=== PATIENT | male | born 1995 | race African-American/Black ===

== ENCOUNTER 2019-08-12 00:26 | Emergency (ER) | payer SELFPAY ==
[~2019-08-12] VITALS: Ht 180.3 cm; Wt 74.8 kg
[2019-08-12 00:35] VITALS: BP 131/65
--- NOTE | 2019-08-12 00:35 | NUR ---
24 YEAR OLD MALE COMPLAINS OF RIGHT HIP PAIN DUE TO CYST X 4 DAYS. PATIENT STATES IT STARTED DRAINING WITH YELLOW PUS AND BLOOD. PATIENT AOX4, LUNGS CTABL, BREATHING EVEN AND UNLABORED, SKIN WARM AND DRY. PT DENIES CHEST PAIN, N/V/D. BED IN LOWEST POSITION, LOCKED, BED RAIL UPX1. PMH - DENIES ALLERGIES - NKA
--- NOTE | 2019-08-12 00:35 | NUR ---
PT TAKEN TO BED 7
--- NOTE | 2019-08-12 01:24 | NUR ---
Dr. Zamarripa examining patient.
[2019-08-12] MEDS ORDERED: KETOROLAC 60 MG/2 ML VIAL IM ONE (01:30)
[2019-08-12 01:52] VITALS: BP 125/65
--- NOTE | 2019-08-12 01:52 | NUR ---
Patient discharged with v/s stable. Written and verbal after care instructions ABOUT ABSCESS AND CELLULITIS given and explained. Patient alert, oriented and verbalized understanding of instructions. Ambulatory with steady gait. All questions addressed prior to discharge. ID band removed. Patient advised to follow up with PMD. Rx of MOTRIN, KEFLEX, AND NORCO given. Patient educated on indication of medication including possible reaction and side effects. Opportunity to ask questions provided and answered. PATIENT GIVEN INSTRUCTIONS TO NOT DRIVE OR OPERATE HEAVY MACHINERY UNDER 4-6 HOURS AFTER NORCO.
[2019-08-14 06:14] LABS: CHLAMYDIA TRACHOMATIS AMP DNA Negative (Negative)
== END 2019-08-12 01:52 | disposition home or self-care (01) ==
LOC: MED 00:26
DX: L02.31 Cutaneous abscess of buttock (principal); L03.317 Cellulitis of buttock; R59.1 Generalized enlarged lymph nodes; F17.210 Nicotine dependence, cigarettes, uncomplicated
CPT/HCPCS: 36415; 81002; 87491; 96372; 99283; J1885